=== PATIENT | female | born 1945 ===

== ENCOUNTER 2016-10-17 12:53 | Inpatient (IN) | payer BC ==
[2016-10-12 15:25] LABS: HEMATOCRIT 40.8 % (36.0-48.0); HEMOGLOBIN 13.5 g/dL (12.0-16.0)
[2016-10-12 15:40] LABS: BUN (BLOOD UREA NITROGEN) 15 MG/DL (6-23); CALCIUM, SERUM 8.9 MG/DL (8.5-10.4); CHLORIDE, SERUM 105 MMOL/L (96-112); CO2 (CARBON DIOXIDE) 30 MMOL/L (24-34); CREATININE 0.64 MG/DL (0.55-1.02); GFR AFRICAN AMERICAN 104 ML/MIN (>=60); GFR NON AFRICAN AMERICAN 90 ML/MIN (>=60); GLUCOSE, SERUM 106 MG/DL (60-99); POTASSIUM, SERUM 3.6 MMOL/L (3.5-5.3); SODIUM, SERUM 141 MMOL/L (135-148)
--- NOTE | ~2016-10-17 | OP ---
Record Of Operation [facility] [address] [place]. [address] NAME: MIGUELINA MARTINEZ : 45 STATUS : DIS IN PAT#: [id number] AGE: 71 ADM/REG DATE : 10/17/16 MR#: [id number] REPORT SERV DATE: 10/20/16 DICTATED BY: OPHELIA BIRMINGHAM DATE: 10/20/16 REPORT STATUS : Draft TRANSCRIBED BY: MODL DATE: 10/20/16 DATE OF PROCEDURE: 10/17/2016 PREOPERATIVE DIAGNOSIS: High-grade right internal carotid artery stenosis. POSTOPERATIVE DIAGNOSIS: Greater than 80% right internal carotid artery stenosis. PROCEDURE: 1. Right carotid endarterectomy with intraoperative shunt placement and CorMatrix patch angioplasty. 2. Completion ultrasound. SURGEON: Ophelia Birmingham M.D. MMD UNIT TEACHER: Donis. ANESTHESIA: General endotracheal. ESTIMATED BLOOD LOSS: 150 mL. IV FLUIDS: 800 mL. SPECIMEN: Plaque. DRAINS: Round 15 Gibran to the right neck. COMPLICATIONS: None. INDICATION: Ms Martinez is a pleasant, 71-year-old female, with recent diagnosis of high-grade right internal carotid artery stenosis. Fortunately, she has been asymptomatic from a stroke standpoint. She is recommended for carotid endarterectomy for stroke prevention. DETAILS OF PROCEDURE: After informed consent was obtained, the patient was brought to the operating room and placed in supine position. After administration of anesthesia, she was prepped and draped in usual sterile fashion. Shoulder roll was placed. A time-out was performed. I commenced the procedure to the right anterior sternocleidomastoid incision. I dissected down through the platysma and subcutaneous tissues with cautery. The facial vein was ligated proximally and distally then divided. Underlying facial veins, carotid bifurcation, which was quite high in the neck. Exposure of the distal internal carotid artery required complete mobilization the hypoglossal nerve, which was carefully preserved. I systemically heparinized. I encircled the internal carotid with a vessel loop. The external carotid artery was encircled with vessel loops as well. The common carotid artery was encircled with umbilical tape. Vagus nerve was identified and preserved as well. After the heparin circulated, I clamped first the internal carotid, followed by the common carotid, then the external carotid artery. Arteriotomy was performed and extended proximally and distally. Immediately, evident is dense heterogeneous plaque throughout the Record Of Operation [facility] [address] [place]. [address] NAME: MIGUELINA MARTINEZ : 45 STATUS : DIS IN PAT#: [id number] AGE: 71 ADM/REG DATE : 10/17/16 MR#: [id number] REPORT SERV DATE: 10/20/16 DICTATED BY: OPHELIA BIRMINGHAM DATE: 10/20/16 REPORT STATUS : Draft TRANSCRIBED BY: MODThanh DATE: 10/20/16 distal common carotid artery bifurcation in the internal carotid. There was no fresh thrombus or ulceration. I then placed a 10-Czech argyle shunt first distally in the internal carotid artery then proximally in the common carotid artery. There was decent backbleeding. Once the shunt was in place and secured with Rumel tourniquet, extensive endarterectomy was performed at the distal common carotid artery bifurcation internal carotid artery. The plaque feathered to a beautiful distal endpoint in the internal carotid artery. The proximal endpoint was cut, flushed with Mosley scissors. I also performed eversion endarterectomy of the external carotid artery. Plaque was passed off the table as a specimen. All remaining loose debris was removed. I irrigated with heparinized saline. I then performed a patch angioplasty with a CorMatrix patch. This was sewn in place with running 6-0 Prolene. Prior to completing the suture line, shunt was removed. I forward flushed and back flushed, and reclamped the arteries. I irrigated one more time with heparinized saline. I then completed suture line. After that, clamps were removed from the common and external carotid leaving internal carotid clamp for several more seconds for flushing. I then removed the internal clamp. The suture line was hemostatic. The artery was obviously pulsatile. We then interrogated the proximal and distal end points with a hand-held ultrasound. There was no free flap or floating debris. No velocity elevations or turbulent flow. Normal Doppler signals were appreciated in all three vessels. After that, we ensured hemostasis. We irrigated with sterile saline. I then placed a round 15 Gibran drain by the artery and brought it out the inferior portion of the incision. I secured it to the skin with 2-0 nylon. After that, the platysmal layer was closed with running 2-0 Vicryl. The skin was closed with running 4-0 Monocryl. Dermabond was applied. Drain was hooked to bulb suction. The patient tolerated the procedure well without obvious complication. I was present and participated the entire case as dictated. While still in the operating room, she was allowed to awaken from anesthesia. She followed commands and moved all four extremities symmetrically. JOSSELINE/CHANDLER Ophelia Birmingham M.D. / [id number] CC: Michelle Yeager KIMBERLY S.
--- NOTE | ~2016-10-17 | DS ---
Discharge Summary [facility] [id number] [place]. [address] NAME: MIGUELINA MARTINEZ : 45 STATUS : DIS IN PAT#: [id number] AGE: 71 ADM/REG DATE : 10/17/16 MR#: [id number] REPORT SERV DATE: 01/16/17 DICTATED BY: OPHELIA BIRMINGHAM. DATE: 01/15/17 REPORT STATUS : Draft TRANSCRIBED BY: CHANDLER DATE: 01/15/17 ADMISSION DATE: 10/17/2016 DISCHARGE DATE: 10/18/2016 REASON FOR ADMISSION: High-grade right internal carotid artery stenosis. PROCEDURES PERFORMED: Right carotid endarterectomy on 10/17/2016. HOSPITAL COURSE: Ms. Martinez is a pleasant 71-year-old female with hypertension and hyperlipidemia, found to have high-grade right internal carotid artery stenosis without stroke symptoms. She underwent uneventful right carotid endarterectomy on 10/17/2016. She convalesced in the intensive care unit overnight. She was neurologically intact and off pressors or antihypertensive drips. She was discharged to home on 10/18/2016. DISCHARGE MEDICATION: See discharge medication list. FOLLOWUP: Follow up with Dr. Birmingham in two weeks. JOSSELINE/CHANDLER Ophelia Birmingham M.D. / [id number] CC: Michelle Yeager KIMBERLY S.
[~2016-10-17 12:53] MED LIST: ASAB PO; LIPITOR20 PO; METPAKSF PO; PRIN2.5 PO; ZYRTEC ALLGY10 MG PO
[2016-10-18] MEDS ORDERED: ASA5GR PO (09:52)
[2016-10-18] MEDS ORDERED: PCET PO (09:53)
== END 2016-10-18 10:45 | disposition home or self-care (01) | DRG 39 ==
LOC: SDC/OF 12:53 → PACU 17:43 → CVICU 19:25
PROVIDERS: Surgery
PROC: 03CL0ZZ Extirpation of Matter from Left Internal Carotid Artery, Open Approach (ICD-10-PCS; principal; 2016-10-17 14:45)
DX: I65.29 Occlusion and stenosis of unspecified carotid artery (principal); E11.9 Type 2 diabetes mellitus without complications; Z87.891 Personal history of nicotine dependence; E78.5 Hyperlipidemia, unspecified; Z79.899 Other long term (current) drug therapy
CPT/HCPCS: 80048; 82962; 85014; 85018; 87641; 88304; 88311; 93005; A9270-GY; C1782; J0690; J2250; J2270; J2370; J2405; J2710; J3010